=== PATIENT | female | born 1965 ===

== ENCOUNTER → 2019-12-03 | Day surgery (SDC) | payer OTHER ==
[2019-12-03 08:39] VITALS: RESP 16
[2019-12-03 11:56] VITALS: BP 117/77; PULSE 54; TEMP 98
--- NOTE | 2019-12-05 20:33 | MM ---
Stereotactic Mammotome core biopsy left breast. HISTORY: Left breast density The density in question within the left breast were targeted by the undersigned. Procedure was performed by the undersigned. Informed consent was obtained and all of the patients questions were answered. The standard sterile technique was utilized and appropriate local anesthesia was obtained with 1% licocaine. Mammotome probe was advanced and multiple core samples were obtained and sent to pathology for interpretation. Microclip marker was deployed at the site of biopsy. Post procedural mammogram demonstrates appropriate deployment of radiopaque clip marker. The patient tolerated the procedure well and left the department in stable condition. Pathology results are pending. IMPRESSION: Successful stereotactic core biopsy left breast with pathology results pending. Pathology Results: Benign LEFT BREAST LESION, NEEDLE CORE BIOPSY: Fibroadenoma. Recommendation Follow up mammogram of the left breast in 6 months. JACKY
== END ==
LOC: RADUSWWP 08:05
PROVIDERS: ATTEND Nurse Practitioner
DX: D24.2 Benign neoplasm of left breast (principal); Z11.59 Encounter for screening for other viral diseases
CPT/HCPCS: 88305; 87635; 19081; A4648; J2001